=== PATIENT | female | born 1935 | race Caucasian/White ===

== ENCOUNTER 2016-03-29 10:36 | Outpatient (CLI) | payer OTHER ==
[2015-05-30 15:42] VITALS: BP 192/72
[2016-03-29 10:59] LABS: eGFR (African) > 60; eGFR (Non-African) > 60
== END 2016-03-29 10:37 ==
LOC: LABRHC 10:36
PROVIDERS: ATTEND Family Medicine
DX: I10 Essential (primary) hypertension (principal); R73.9 Hyperglycemia, unspecified; E55.9 Vitamin D deficiency, unspecified
CPT/HCPCS: 80053; 80061; 82306; 83036; 83735

== ENCOUNTER 2016-05-14 15:05 | Outpatient (CLI) | payer OTHER ==
[2015-05-30 15:42] VITALS: BP 192/72
== END 2016-05-14 15:10 ==
LOC: POD 15:05
PROVIDERS: ATTEND Podiatrist
DX: B35.1 Tinea unguium (principal); M79.674 Pain in right toe(s); M79.675 Pain in left toe(s)
CPT/HCPCS: G0463

== ENCOUNTER 2016-07-15 18:48 | Emergency (ER) | payer OTHER ==
[2016-07-15] MEDS ORDERED: 0.9 % SODIUM CHLORIDE 500 ML IV ONE (19:42)
[2016-07-15] MEDS: 0.9 % SODIUM CHLORIDE 500 ML IV ONE (19:45)
[2016-07-15 19:57] LABS: BASOPHILS % 0.4 (0.0-1.5); EOSINOPHILS % 3.9 % (0.0-6.8); MEAN CORPUSCULAR HEMOGLOBIN 30.9 pg (28.0-34.0); MEAN CORPUSCULAR VOLUME 94.1 fl (80.0-100.0); MONOCYTES % 4.6 % (0.0-11.0); NEUTROPHILS # 4.8 # k/uL (1.4-7.7)
[2016-07-15 20:00] LABS: eGFR (African) > 60; eGFR (Non-African) > 60
[2016-07-15] MEDS: POTASSIUM CHLORIDE 20 MEQ TABLET.ER PO ONE (20:24)
[2016-07-15] MEDS: MECLIZINE HCL 25 MG TABLET PO ONE (20:24)
--- NOTE | 2016-07-15 20:40 | ED Physician Documentation ---
General Adult - HISTORIAN Historian: patient, other (family) - HPI Stated Complaint: dizzy,weakness Chief Complaint: General Adult Further Comments: yes (81 year old female patient presents with complaints of vertigo which started a few days ago. Patient had been taking 1/2 tab of Celexa 10mg. Patient took herself off Celexa due to night gillette and "I'm tired of taking it". Family very concerned, state patient has increase anxiety and is prone to depression. Patient is a very poor historian and contradicts her own answers frequently. Patient c/o urinary burning, denies fever, frequency, or N/V.) - ROS CONST: no problems EYES/ENT: none CVS/RESP: none GI/: none NEURO/PSYCH: dizziness, anxiety, depression - PAST HX Past History: hypertension Other History: other (depression, HLD) Allergies/Adverse Reactions: Allergies Allergy/AdvReac Type Severity Reaction Status Date / Time No Known Drug Allergies Allergy Verified 07/15/16 20:39 Home Medications: Ambulatory Orders Medication Instructions Recorded Citalopram Hydrobromide 20 mg PO D 07/15/16 [Citalopram HBr] - SOCIAL HX Smoking History: cigarettes - FAMILY HX Family History: No - VITAL SIGNS Vital Signs: Vital Signs Temp Pulse Resp BP Pulse Ox 98.4 F 73 18 171/72 93 07/15/16 18:48 07/15/16 19:00 07/15/16 18:48 07/15/16 19:00 07/15/16 18:48 - REVIEWED ASSESSMENTS Nursing Assessment Reviewed: Yes Vitals Reviewed: Yes Progress - Progress Progress: Chloride 106 - lab rerun Long discussion with family regarding medications and symptoms patient has been reporting. Patient has been having night gillette and waking up tired. Is currently taking 1/2 of her prescribed dose of Celexa. Is using the lorazepam QAM only. Dizziness started after patient stopped celexa. Strongly encouraged patient to take all medications as prescribed. Restart Celexa at 20mg per Dr Agudelo's March 2016 office note. Encouraged patient to use lorazepam qhs as well. Medicated with meclizine while in the Er for vertigo. Will prescribe prn dose. ED Results Lab/Radiology - Lab Results Lab Results: Lab Results 07/15/16 07/15/16 19:41 19:41 WBC 8.26 K/ul K/ul (4.00-12.00) RBC 4.40 M/ul M/ul (3.90-5.20) Hgb 13.6 g/dL g/dL (12.0-16.0) Hct 41.4 % % (34.5-46.5) MCV 94.1 fl fl (80.0-100.0) MCH 30.9 pg pg (28.0-34.0) MCHC 32.9 g/dL g/dL (30.0-36.0) RDW 13.4 % % (11.3-14.3) Plt Count 192 K/mm3 K/mm3 (130-400) Neut % (Auto) 57.8 % % (39.0-79.0) Lymph % (Auto) 31.8 % % (16.0-50.0) [place] % (Auto) 4.6 % % (0.0-11.0) Eos % (Auto) 3.9 % % (0.0-6.8) Baso % (Auto) 0.4 (0.0-1.5) Neut # 4.8 # k/uL # k/uL (1.4-7.7) Lymph # 2.6 # k/uL # k/uL (0.6-4.0) [place] # 0.4 # k/uL # k/uL (0.0-0.9) Eos # 0.3 # k/uL # k/uL (0.0-0.6) Baso # 0.0 # k/uL # k/uL (0.0-0.5) Reactive Lymphs % 1.5 % % (0.0-5.0) Reactive Lymphs # 0.1 # k/uL # k/uL (0.0-0.8) Sodium 144 mmol/L mmol/L (136-145) Potassium 3.2 mmol/L L mmol/L (3.5-5.0) Chloride 150 mmol/L H mmol/L (98-110) Carbon Dioxide 33 mmol/L H mmol/L (20-32) BUN 15 mg/dL mg/dL (10-26) Creatinine 0.7 mg/dL mg/dL (0.4-1.5) Est GFR ( Amer) > 60 (60 - ) Est GFR (Non-Af Amer) > 60 (60 - ) Glucose 116 mg/dL H mg/dL (70-99) Calcium 9.7 mg/dL mg/dL (8.5-10.5) Total Bilirubin 0.3 mg/dL mg/dL (0.2-1.2) AST 22 U/L U/L (0-41) ALT 18 U/L U/L (0-45) Alkaline Phosphatase 63 U/L U/L (46-116) Total Protein 7.0 g/dL g/dL (6.0-8.5) Albumin 4.1 g/dL g/dL (3.0-5.5) - Orders Orders: ED Orders Category Date Time Status Orthostatics PRN Care 07/15/16 19:[address] Saline Lock/IV NOW Care 07/15/16 19:12 Active BMP [BMP] Stat Lab 07/15/16 Ordered CBC/PLATELET/DIFF Stat Lab 07/15/16 19:41 Completed CMP Stat Lab 07/15/16 19:41 Completed UA W/MICRO IF INDICATED Stat Lab 07/15/16 19:12 Ordered 0.9 % Sodium Chloride [Normal Saline] 500 ml Med 07/15/16 19:42 Discontinued IV .STK-MED 0.9 % Sodium Chloride [Normal Saline] 500 ml Med 07/15/16 19:40 Discontinued IV NOW Meclizine HCl [Antivert] Med 07/15/16 20:15 Discontinued 25 mg PO NOW ONE Potassium Chloride [Klor-Con M20] Med 07/15/16 20:15 Discontinued 40 meq PO NOW ONE General Adult Physical Exam - PHYSICAL EXAM GENERAL APPEARANCE: [id number] N EENT: eye inspection normal, DM RESPIRATORY: no resp distress, chest non-tender, breath sounds normal CVS: reg rate & rhythm, heart sounds normal, equal pulses, no murmur, no gallop , PMI nml, no JVD, no friction rub, 24 ABDOMEN: soft, no organomegaly, normal bowel sounds, no abdominal bruit, no distension BACK: normal inspection, no CVA tenderness SKIN: normal color, warm/dry, NR, INT, PAL, DR EXTREMITIES: non-tender, normal range of motion, no evidence of injury, no edema , J, [employer]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 Use your Lorazepam (ativan) in the morning and AT BEDTIME to help you sleep Restart your Aspirin 325mg every MORNING only. DO NOT use aspirin for pain. Use tylenol or ibuprofen as needed for pain. Follow up with Dr Agudelo for a lab recheck and medication recheck. Home Medications: Ambulatory Orders Citalopram Hydrobromide [Citalopram HBr] 20 mg PO D 07/15/16 Condition: Stable Disposition: 01 HOME, SELF-CARE Decision to Admit: NO Decision Time: 20:51
[2016-07-15 21:57] VITALS: BP 157/74
[2016-07-16 05:47] LABS: APPEARANCE,URINE CLEAR (CLEAR); COLOR,URINE YELLOW (YELLOW)
[2016-07-16 05:48] LABS: OCCULT BLOOD,URINE NEGATIVE (NEGATIVE); UROBILINOGEN URINE 0.2 Eu (0.2-1.0)
== END 2016-07-15 21:00 | disposition home or self-care (01) ==
LOC: ED 18:48
DX: R42 Dizziness and giddiness (principal)
CPT/HCPCS: 80053; 85025; A9270; J7030; J7060; 81002; 87086; 96360; 99283; S1016

== ENCOUNTER 2016-08-19 16:16 | Outpatient (CLI) | payer OTHER ==
[2016-08-19 16:41] LABS: eGFR (African) > 60; eGFR (Non-African) > 60
== END 2016-08-19 16:17 ==
LOC: LABRHC 16:16
PROVIDERS: ATTEND Family Medicine
DX: E11.9 Type 2 diabetes mellitus without complications (principal)
CPT/HCPCS: 80053; 83036

== ENCOUNTER 2016-09-24 14:49 | Outpatient (CLI) | payer OTHER | END 2016-09-24 14:50 | LOC: POD 14:49 | PROVIDERS: ATTEND Podiatrist | DX: B35.1 Tinea unguium (principal); M79.674 Pain in right toe(s); M79.675 Pain in left toe(s) | CPT/HCPCS: 11721; G0463 ==

== ENCOUNTER 2017-04-05 11:31 | Emergency (ER) | payer OTHER ==
--- NOTE | 2017-04-05 11:52 | ED Physician Documentation ---
General Adult - HISTORIAN Historian: patient - HPI Stated Complaint: fall Chief Complaint: Fall Onset: other (3 days ) Timing: still present Severity: mild Further Comments: yes (She with son at bedside reports that she has had some issues with general fatigue and dizzines and Dr Agudelo (her PCP) has been trying to figure out what the issue is without success . Son states that she has tried different meds for anxiety and depression (she has recently lost and son ) She states she has had some ongoing weakness but this usually starts in am and resloves through out the day , although over last "about a week" she has had continuing weakness and just feeling "blah" . She denies any headache, no fever, no urinary issues, no N/V/D. Son states 3 days ago she had a fall. Pt states 3 days ago she had an extreme dizzy episode and she did fall. Denies any injury, she denies hitting her head. She states since this fall the weakness is increased. She also reports a "numbness in my tounge at the tip and my left thumb" she states this comes and goes. Family denies any change in her metal status or use of limbs. She denies any physical weakness on one side vs the other . She denies any loss of control of bowel or bladder) Last known Well Code/Unknown Code: Unknown - ROS CONST: weakness. denies: fever EYES/ENT: denies: problems with vision CVS/RESP: denies: shortness of breath, cough GI/: denies: abdominal pain, problems urinating, vomiting, nausea, diarrhea MS/SKIN/LYMPH: denies: calf pain, neck pain, joint pain, leg swelling, rash, swollen glands, leg pain, back pain, ankle swelling NEURO/PSYCH: dizziness, tingling, numbness, anxiety, depression. denies: headache, fainting, difficulty walking, difficulty with speech - PAST HX Past History: hypertension (PVD, insomina ), other Other History: none Allergies/Adverse Reactions: Allergies Allergy/AdvReac Type Severity Reaction Status Date / Time No Known Drug Allergies Allergy Verified 04/05/17 11:52 Home Medications: Ambulatory Orders Medication Instructions Recorded Meclizine HCl 12.5 mg PO TID PRN #30 tablet 07/15/16 - SOCIAL HX Smoking History: cigarettes Alcohol Use: none Drug Use: none - FAMILY HX Family History: No - VITAL SIGNS Vital Signs: Vital Signs Temp Pulse Resp BP Pulse Ox 157/74 07/15/16 21:46 - REVIEWED ASSESSMENTS Nursing Assessment Reviewed: Yes Vitals Reviewed: Yes Progress - Results/Orders Results/Orders: Findings discussed with family they are requesting to transfer to [facility] [place] (Transfer Engineer) contacted and case discussed she will page Neurology and return call Return call from Dr Agudelo (Neurology) and he will accept patient He is requesting CD of scan Pt and family aware and agreeable to plan ED Results Lab/Radiology - Radiology Radiology Impressions: Examination: CT head without contrast History: Fall Comparison exam: None available Technique: Noncontrast head CT protocol. Findings: Ventricles and sulci are prominent. Cerebrocerebellar parenchyma demonstrates periventricular low attenuation consistent with small vessel disease. High density area involving the cerebellum. No evidence for mass or mass effect. No midline shift. No extra axial fluid collections. Partial visualization of the paranasal sinuses, mastoid air cells, orbits, skull and scalp without gross irregularity. Vascular calcifications. Impression: Advanced age related changes. High density area left cerebellum concerning for hemorrhage given patient's history of fall. Possibility that this represents calcification is a distinct possibility however without old films this cannot be confirmed. Consider neurosurgical consultation not already obtained. Discussed findings with Dr. White at 1243 hours on 05 April 2017 CDT Electronically signed on Apr 05, 2017 12:44:35 PM ELECTROTYPE CASTER by: Derek Tidwell General Adult Physical Exam - PHYSICAL EXAM GENERAL APPEARANCE: no distress EENT: eye inspection normal, DM NECK: normal inspection RESPIRATORY: no resp distress, chest non-tender, breath sounds normal CVS: reg rate & rhythm, heart sounds normal, equal pulses, no murmur ABDOMEN: soft, normal bowel sounds, no distension, non-tender BACK: normal inspection SKIN: warm/dry, normal color, cyanosis EXTREMITIES: non-tender, normal range of motion, no evidence of injury, no edema NEURO: oriented X3, CN's nml as tested, motor nml, sensation nml, mood/affect nml, cognition normal. No: weakness/sensory loss, speech/cognition abnml, depressed mood/affect, facial droop, sensory/motor deficit, asymmetric reflexes Discharge Clincal Impression: Hemorrhagic cerebellum Qualifiers: Laterality: left Clincal Impression: (Ruled Out): Brain stem hemorrhage Referrals: Calvin Agudelo MD [Primary Care Provider] - 2 Days Comments: Dr Agudelo [facility] accepting Condition: Critical Disposition: 02 XFER SHT-TRM HOSP Decision to Admit: [id number] Date of Decison to Admit: 04/05/17 Decision Time: 13:38
[2017-04-05 12:24] LABS: BASOPHILS % 0.8 (0.0-1.5); EOSINOPHILS % 2.4 % (0.0-6.8); MEAN CORPUSCULAR HEMOGLOBIN 30.7 pg (28.0-34.0); MEAN CORPUSCULAR VOLUME 96.7 fl (80.0-100.0); MONOCYTES % 3.6 % (0.0-11.0); NEUTROPHILS # 5.4 # k/uL (1.4-7.7)
[2017-04-05 12:45] LABS: eGFR (African) > 60; eGFR (Non-African) > 60
[2017-04-05 12:52] LABS: APPEARANCE,URINE CLEAR (CLEAR); COLOR,URINE YELLOW (YELLOW)
[2017-04-05 12:53] LABS: OCCULT BLOOD,URINE NEGATIVE (NEGATIVE); UROBILINOGEN URINE 0.2 Eu (0.2-1.0)
[2017-04-05 14:01] VITALS: BP 159/64
--- NOTE | 2017-04-05 17:59 | Diagnostic Imaging Report ---
NOE ROSAS [facility] [place] [facility] [address] [facility] [address] [place], [place]. [address] Report Submission Date: Apr 05, 2017 12:44:35 PM STATISTICS PROFESSOR Patient Study Name: ROSELINE CHAVEZ Date: Apr 05, 2017 12:16:42 PM STATISTICS PROFESSOR Modality Type: CT\SR Gender: F Description: CT BRAIN W/O CONTRAST : 34 Institution: [facility] Physician: NOE ROSAS Examination: CT head without contrast History: Fall Comparison exam: None available Technique: Noncontrast head CT protocol. Findings: Ventricles and sulci are prominent. Cerebrocerebellar parenchyma demonstrates periventricular low attenuation consistent with small vessel disease. High density area involving the cerebellum. No evidence for mass or mass effect. No midline shift. No extra axial fluid collections. Partial visualization of the paranasal sinuses, mastoid air cells, orbits, skull and scalp without gross irregularity. Vascular calcifications. Impression: Advanced age related changes. High density area left cerebellum concerning for hemorrhage given patient's history of fall. Possibility that this represents calcification is a distinct possibility however without old films this cannot be confirmed. Consider neurosurgical consultation not already obtained. Discussed findings with Dr. Rosas at 1243 hours on 05 April 2017 CDT Electronically signed on Apr 05, 2017 12:44:35 PM STATISTICS PROFESSOR by: Derek BRADFORD
== END 2017-04-05 13:55 | disposition short-term general hospital (02) ==
LOC: ED 11:31
DX: I61.4 Nontraumatic intracerebral hemorrhage in cerebellum (principal)
CPT/HCPCS: 70450; 80053; 81002; 85025; 87086; 99283; S1016

== ENCOUNTER 2017-04-28 16:29 | Outpatient (CLI) | payer OTHER | END 2017-04-28 16:30 | LOC: LABRHC 16:29 | PROVIDERS: ATTEND Family Medicine | DX: N30.90 Cystitis, unspecified without hematuria (principal) | CPT/HCPCS: 87086 ==

== ENCOUNTER 2017-08-19 10:34 | Outpatient (CLI) | payer OTHER | END 2017-08-19 10:35 | LOC: LABRHC 10:34 | PROVIDERS: ATTEND Physician Assistant | DX: N30.00 Acute cystitis without hematuria (principal) | CPT/HCPCS: 87086 ==

== ENCOUNTER 2017-09-12 13:30 | Outpatient (CLI) | payer OTHER | END 2017-09-12 13:32 | LOC: LAB 13:30 | PROVIDERS: ATTEND Family Medicine | DX: N30.00 Acute cystitis without hematuria (principal) | CPT/HCPCS: 87086 ==

== ENCOUNTER 2017-09-29 16:14 | Outpatient (CLI) | payer OTHER | END 2017-09-29 16:15 | LOC: LABRHC 16:14 | PROVIDERS: ATTEND Family Medicine | DX: N30.01 Acute cystitis with hematuria (principal) | CPT/HCPCS: 87086 ==

== ENCOUNTER 2017-11-24 13:20 | Outpatient (CLI) | payer OTHER ==
[2017-11-24 15:40] LABS: eGFR (Non-African) > 60
== END 2017-11-24 13:25 ==
LOC: LAB 13:20
PROVIDERS: ATTEND Family Medicine
DX: R73.9 Hyperglycemia, unspecified (principal); E78.5 Hyperlipidemia, unspecified
CPT/HCPCS: 36415; 80053; 80061; 83036

== ENCOUNTER 2018-03-05 14:02 | Outpatient (CLI) | payer OTHER | END 2018-03-05 14:03 | LOC: LABRHC 14:02 | PROVIDERS: ATTEND Family Medicine | DX: N39.0 Urinary tract infection, site not specified (principal) | CPT/HCPCS: 87086 ==

== ENCOUNTER 2018-11-16 10:32 | Outpatient (CLI) | payer OTHER, MEDICARE | END 2018-11-16 10:34 | LOC: LABRHC 10:32 | PROVIDERS: ATTEND Family Medicine | DX: B96.1 Klebsiella pneumoniae [K. pneumoniae] as the cause of diseases classified elsewhere (principal) | CPT/HCPCS: 87086; 87186 ==

== ENCOUNTER 2018-11-17 14:48 | Emergency (ER) | payer MEDICARE, OTHER ==
--- NOTE | 2018-11-17 15:31 | ED Physician Documentation ---
Dizziness - HISTORIAN Historian: patient - HPI Stated Complaint: fall Chief Complaint: Fall Additional Information: Patient is an 83 year old female who presents to the ER via [facility] from home. Patient states that she started on Zoloft 50mg in the evening yesterday. Took her first dose around 21:00. She states that she has been dizzy since taking it. This AM she continued to be dizzy and fell between [id number]. States that she landed on her butt. Was unable to get up and was on the kitchen floor until her neighbor found her at approx. 1400, c/o continuous dizziness and low back pain. She is able to straighten her legs and bring knees to 90 degrees. Family wants to make sure she didn't hurt her back or pelvis. NIH is negative. Patient is alert and oriented; patient was not wearing her life alert. Timing: sudden onset, better Duration: none Severity: mild Associated Symptoms: light headedness Decreased Ability to Stand/ Walk: cannot walk Usually: walks w/o assistance Worsened By: changing position - ROS CONST: other (Started taking Zoloft 50 mg last night) EYES/ENT: none GI/: none MS/SKIN/LYMPH: none NEURO/PSYCH: none CVS/RESP: none - PAST HX Past History: hypertension, other (anxiety and depression) Cardiac Disease: other (HLD, PVD) Immunizations: UTD Allergies/Adverse Reactions: Allergies Allergy/AdvReac Type Severity Reaction Status Date / Time No Known Drug Allergies Allergy Verified 11/17/18 15:16 Home Medications: Ambulatory Orders Medication Instructions Recorded Sulfamethoxazole/Trimethoprim 11/17/18 [Sulfamethoxazole-Tmp Ds Tablet] - SOCIAL HX Smoking History: less than 1 pack/day Alcohol Use: none Drug Use: none - FAMILY HX Family History: none - VITAL SIGNS Vital Signs: Vital Signs Temp Pulse Resp BP Pulse Ox 98.1 F 77 24 170/62 94 11/17/18 14:48 11/17/18 14:48 11/17/18 14:48 11/17/18 14:48 11/17/18 14:48 - REVIEWED ASSESSMENTS Nursing Assessment Reviewed: Yes Vitals Reviewed: Yes ED Results Lab/Radiology - Radiology Radiology Impressions: Exam: AP pelvis. History: Fall. No previous studies are available for comparison. Diffuse osteopenia is noted. No signs of acute fracture or dislocation is seen. No bony erosions are seen. No soft tissue abnormalities identified. Impression: No bony abnormality. Exam: Lumbar spine. History: Fall. AP and lateral view of the lumbar spine are submitted. Diffuse osteopenia is noted. Dextroscoliosis is noted. The vertebral body heights are adequately maintained. Disc space narrowing with endplate sclerosis and spurring throughout the lumbar spine are noted. No spondylolisthesis is identified. Impression: Diffuse osteopenia. Dextroscoliosis. Multilevel degenerative disc disease. - Orders Orders: ED Orders Category Date Time Status L SPINE 2 OR 3 VIEWS [RAD] Stat Exams 11/17/18 Ordered PELVIS AP 1 OR 2 VIEWS [RAD] Stat Exams 11/17/18 Ordered CBC/PLATELET/DIFF Routine Lab 11/17/18 15:13 Ordered CMP Routine Lab 11/17/18 15:13 Ordered URINALYSIS Routine Lab 11/17/18 15:13 Ordered EKG WITH COMPARISON Stat Ther 11/17/18 Ordered Dizziness Physical Exam - Physical Exam General Appearance: mild distress EENT: eye inspection normal, ENT inspection normal, pharynx normal, no signs of dehydration, DM Neck: supple Respiratory: breath sounds nml CVS: heart sounds normal Abdomen: soft, normal bowel sounds Skin: warm/dry, normal color Neuro: nml orientation, nml speech, nml cognition, mood/affect nml Extremities: non-tender, normal range of motion, no evidence of injury Cranial: nml as tested, no evidence of acute CVA Cerebellar: nml as tested Sensorimotor: motor nml, sensation nml Discharge Clincal Impression: New medication added, Fall at home, Medication side effect Clincal Impression: (Ruled Out): Medication dose changed Referrals: Calvin Agudelo MD [Primary Care Provider] - 2 Days Additional Instructions: Decrease Zoloft to 25mg in the evening for 1 week and follow up with PCP to increase Change positions slowly and sit for a moment Increase water intake Wear life alert Follow up with PCP in one week to reevaluate and discuss Zoloft increase (patient was able to get up and get into vehicle without difficulty) Condition: Good Disposition: 01 HOME, SELF-CARE Decision to Admit: NO Decision Time: 16:45
[2018-11-17 15:55] LABS: APPEARANCE,URINE CLEAR (CLEAR); COLOR,URINE AMBER (YELLOW); OCCULT BLOOD,URINE NEGATIVE (NEGATIVE); PH URINE 6.5 (5.0 - 8.0)
[2018-11-17 15:58] LABS: BASOPHILS % 0.4 % (0.0-1.5); NEUTROPHILS # 8.3 # k/uL (1.4-7.7)
[2018-11-17 16:07] LABS: eGFR (Non-African) > 60
[2018-11-17 16:48] VITALS: BP 153/52
--- NOTE | 2018-11-19 14:20 | Diagnostic Imaging Report ---
TIFFANY COMBS ED [facility] [address] [facility].[address] [address] Report Submission Date: Nov 17, 2018 3:42:59 PM CDT Patient Study Name: ROSELINE CHAVEZ Date: Nov 17, 2018 3:12:11 PM CDT Modality Type: DX Gender: F Description: L SPINE 2 OR 3 VIEWS : 34 Institution: [facility] Physician: TIFFANY COMBS ED Exam: Lumbar spine. History: Fall. AP and lateral view of the lumbar spine are submitted. Diffuse osteopenia is noted. Dextroscoliosis is noted. The vertebral body heights are adequately maintained. Disc space narrowing with endplate sclerosis and spurring throughout the lumbar spine are noted. No spondylolisthesis is identified. Impression: Diffuse osteopenia. Dextroscoliosis. Multilevel degenerative disc disease. Electronically signed on Nov 17, 2018 3:42:59 PM CDT by: Demetrio BRADFORD
--- NOTE | 2018-11-19 14:20 | Diagnostic Imaging Report ---
TIFFANY COMBS ED [facility] [address] [facility].[address] [address] Report Submission Date: Nov 17, 2018 3:43:39 PM CDT Patient Study Name: ROSELINE CHAVEZ Date: Nov 17, 2018 3:12:13 PM CDT Modality Type: DX Gender: F Description: PELVIS AP 1 OR 2 VIEWS : 34 Institution: [facility] Physician: TIFFANY COMBS ED Exam: AP pelvis. History: Fall. No previous studies are available for comparison. Diffuse osteopenia is noted. No signs of acute fracture or dislocation is seen. No bony erosions are seen. No soft tissue abnormalities identified. Impression: No bony abnormality. Electronically signed on Nov 17, 2018 3:43:39 PM CDT by: Demetrio BRADFORD
== END 2018-11-17 16:34 | disposition home or self-care (01) ==
LOC: ED 14:48
DX: T88.7XXA Unspecified adverse effect of drug or medicament, initial encounter (principal); T43.205A Adverse effect of unspecified antidepressants, initial encounter; W19.XXXA Unspecified fall, initial encounter; Y92.009 Unspecified place in unspecified non-institutional (private) residence as the place of occurrence of the external cause
CPT/HCPCS: 36415; 72100; 72170; 80053; 81002; 85025; 93005; 99281; 99282

== ENCOUNTER 2019-02-08 13:10 | Inpatient (IN) | payer OTHER ==
[2019-02-08 13:48] VITALS: BMI 23.1
[2019-02-08] MEDS ORDERED: LORazepam 0.5 MG TABLET PO PRN (14:00)
[2019-02-08 14:13] LABS: BASOPHILS % 0.4 % (0.0-1.5); NEUTROPHILS # 6.2 # k/uL (1.4-7.7)
[2019-02-08 14:53] LABS: eGFR (Non-African) > 60
--- NOTE | 2019-02-08 15:14 | Diagnostic Imaging Report ---
PATIENT MR#: [id number] PATIENT PATIENT NAME: ROSELINE CHAVEZ DATE OF : 1935 REFERRING PHYSICIAN: Calvin Agudelo EXAM DATE: 02/08/2019 ACCESSION NUMBER: [id number] EXAM DESCRIPTION: CT BRAIN W/O CONTRAST CLINICAL HISTORY: MENTAL STATUS CHANGES; GENERAL FEELING OF WEAKNESS COMPARISON: April 05, 2017. TECHNIQUE: Head CT without contrast Brain: Again seen is calcification of the left cerebellar dentate nucleus. There is moderate diffuse periventricular white matter low attenuation change. No intracranial hemorrhage, hydrocephalus, acute parenchymal jay ma or evident mass. Calvarium: Unremarkable. Sinuses: Clear. Intracranial vessels: Atherosclerotic calcification of the anterior and posterior circulation. IMPRESSION: 1. No acute intracranial findings. 2. Chronic small vessel ischemic disease. 3. Left cerebellar calcification, unchanged. Read by: Dr. Lasha Francisco Transcribed by: Lasha Francisco Transcribed Date: 02/08/2019 3:13:37 PM Electronically signed by: Dr. Lasha Francisco Date signed: 02/08/2019 3:13:37 PM
[2019-02-08 15:23] LABS: APPEARANCE,URINE CLOUDY (CLEAR); COLOR,URINE YELLOW (YELLOW)
[2019-02-08 15:24] LABS: OCCULT BLOOD,URINE NEGATIVE (NEGATIVE); PH URINE 6.5 (5.0 - 8.0)
[2019-02-08] MEDS: NICOTINE 14mg PATCH.TD24 TD SCH (16:10)
--- NOTE | 2019-02-08 17:34 | History and Physical Report ---
History of Present Illnes - History of Present Illness Reason for Visit: Increasing ftigue and mental confusion History of Present Illness: 83yo who has been having some problems with fatigue.patient stated she is been having some problems for several years but is seem to be getting worse. Patient stated in the morning when she wakes up she doesn't have any energy to do anything. So she would lay in bed until around late morning. Then when she gets up at that time she starts feeling better. However her family stated she didn't that he may have difficulties in the afternoon and evening. Patient is been having some more episodes of confusion. This seems to be acutely worse over the last two weeks. Patient has been worked up as an outpatient without any specific etiology found. Patient does have some depression but has stopped taking her sertraline because she did not feel that it was helping. Patient is now having difficulties in taking her medications at the proper time. Patient was subsequently admitted to the hospital for further evaluation and treatment. - Past Medical History Cardiac: HTN, Hyperlipidemia, Other (PVD) ENT: Other (macular degeneration) Endocrine: Diabetes (type 2) - Past Surgical History Past Surgical History: Total Knee Replacement - Past Social History Smoke: # pack years (45), <1 pack per day (1/2 ppd) Occupation: retired Alcohol: None Drugs: None Lives: Alone - Health Maintenance Health Maintenance: denies: Influenza Vaccine (pt refuses), Pneumococcal Vaccine (pt refuses) Influenza Vaccine: No Pneumonia Vaccine: No Resuscitation Status: Resusciation Status Resuscitation Status Full Code Review of Systems - Review of Systems Constitutional: negative: Fever, Chills, Sweats Eyes: negative: pain, vision change ENT: Other (patient has been having some dizziness that sometimes just last for second or two and then sometimes for 15 to 30 minutes. No precipitating cause noted. Patient describes it as vertical type dizziness.). negative: Ear Pain, Ear Discharge, Nose Pain, Nose Discharge, Nose Congestion, Mouth Pain, Mouth Swelling, Throat Swelling Respiratory: negative: Cough, Shortness of Breath, Hemoptysis, SOB with Excertion, Wheezing Cardiovascular: Light Headedness. negative: Chest Pain, Palpitations, Orthopnea, Paroxysmal Noc. Dyspnea Gastrointestinal: Nausea, Constipation. negative: Vomiting, Abdominal Pain, Diarrhea, Melena, Hematochezia Genitourinary: negative: Dysuria, Frequency, Incontinence, Hematuria Musculoskeletal: Back Pain. negative: Neck Pain, Leg Pain Skin: negative: Rash, Lesions, Jaundice Neurological: Confusion. negative: Weakness, Numbness, Incoordination, Change in Speech - Medications/Allergies Allergies/Adverse Reactions: Allergies Allergy/AdvReac Type Severity Reaction Status Date / Time No Known Drug Allergies Allergy Verified 11/17/18 15:16 Home Medications: Home Medications Aspirin [Adult Aspirin Regimen] 81 mg PO DAILY 02/08/19 Cholecalciferol (Vitamin D3) [Vitamin D3] 1,000 units PO DAILY 02/08/19 Meclizine HCl [Motion-Time] 25 mg PO PRN 02/08/19 Current Inpatient Medications: Current Inpatient Medications Amlodipine Besylate (Norvasc) 5 mg PO DAILY [facility] Stop: 03/11/19 08:59 Aspirin (Shayna) 325 mg PO DAILY [facility] Stop: 03/11/19 08:59 Enoxaparin Sodium (Lovenox) 30 mg SQ DAILY [facility] Stop: 02/23/19 08:59 Fluticasone Propionate (Flonase Nasal [place]) 2 spray IEN DAILY [facility] Stop: 03/11/19 08:59 Lorazepam (Ativan) 0.5 mg PO HS [facility] Stop: 03/10/19 20:59 Lorazepam (Ativan) 0.5 mg PO TID PRN PRN Reason: Anxiety Stop: 03/10/19 13:59 Nicotine (Habitrol 14mg) 1 patch TD DAILY [facility] Stop: 03/10/19 15:59 Last Admin: 02/08/19 16:10 Dose: 1 patch Sertraline HCl (Zoloft) 50 mg PO DAILY [facility] Stop: 03/11/19 08:59 Exam - Exam Vital Signs: Vital Signs (72 hours) 02/08/19 13:12 Temperature 97 F L Pulse Rate [ 76 Right] Respiratory 20 Rate Blood Pressure 152/70 [Right Arm] O2 Sat by Pulse 98 Oximetry General: Alert, Oriented to Person, Oriented to Place, Oriented to Time, Cooperative, No acute distress HEENT: Atraumatic, PERRLA, EOMI, Mouth Mucous membr. moist/[place], Nose Mucous membr. moist/[place], Dentition Normal Neck: Normal Range of Motion Carotids: WNL Thyroid: WNL Lungs: Clear to auscultation, Normal air movement, Speaks full Sentences Cardiovascular: Regular rate, Normal S1, Normal S2, No murmurs Abdomen: Normal bowel sounds, Soft, No hepatospenomegaly, No masses, Other (mild tenderness over the LUQ area) Integumentary: Normal, [place], Warm, Dry Extremities: No clubbing, No cyanosis, No edema, Normal pulses, No tenderness/swelling Neurological: Normal gait, Normal speech, Strength Equal Bilat, Normal tone, Sensation intact, Cranial nerves 3-12 NL, Reflexes 2+ Psych/Mental Status: Mental status NL, Mood NL, Appropriate Affect, Intact Judgment, Other (patient does appear to have some confusion at times. She tends to repeat her self and her questions at times. Is having some difficulty with abstract thinking.) - Laboratory Results Laboratory Results: Laboratory Results 02/08/19 02/08/19 02/08/19 13:53 13:53 13:53 WBC 9.20 RBC 4.58 Hgb 14.0 Hct 42.4 MCV 93.0 MCH 30.5 MCHC 32.9 RDW 11.6 Plt Count 220 Neut % (Auto) 66.7 Lymph % (Auto) 24.5 [place] % (Auto) 5.4 Eos % (Auto) 3.0 Baso % (Auto) 0.4 Neut # (Auto) 6.2 Lymph # (Auto) 2.3 [place] # (Auto) 0.5 Eos # (Auto) 0.3 Baso # (Auto) 0.0 Sodium 140 Potassium 3.7 Chloride 105 Carbon Dioxide 26 Anion Gap 12.7 BUN 22 H Creatinine 0.74 Estimated Creat Clear 66 Est GFR ( Amer) > 60 Est GFR (Non-Af Amer) > 60 Glucose 129 H Calcium 9.7 Total Bilirubin 0.5 AST 33 ALT 15 Alkaline Phosphatase 61 Total Protein 8.4 H Albumin 4.3 TSH 1.840 Free T4 Direct 1.16 Free T3 Index Pending Urine Color Urine Appearance Urine pH Ur Specific [place] Urine Protein Urine Ketones Urine Occult Blood Urine Nitrite Urine Bilirubin Urine Urobilinogen Ur Leukocyte Esterase Urine RBC Urine WBC Ur Squamous Epith Cells Urine Bacteria Urine Glucose 02/08/19 15:12 WBC RBC Hgb Hct MCV MCH MCHC RDW Plt Count Neut % (Auto) Lymph % (Auto) [place] % (Auto) Eos % (Auto) Baso % (Auto) Neut # (Auto) Lymph # (Auto) [place] # (Auto) Eos # (Auto) Baso # (Auto) Sodium Potassium Chloride Carbon Dioxide Anion Gap BUN Creatinine Estimated Creat Clear Est GFR ( Amer) Est GFR (Non-Af Amer) Glucose Calcium Total Bilirubin AST ALT Alkaline Phosphatase Total Protein Albumin TSH Free T4 Direct Free T3 Index Urine Color Yellow Urine Appearance Cloudy H Urine pH 6.5 Ur Specific [place] 1.015 Urine Protein Negative Urine Ketones Negative Urine Occult Blood Negative Urine Nitrite Positive H Urine Bilirubin Negative Urine Urobilinogen 1.0 Ur Leukocyte Esterase 1+ H Urine RBC Negative Urine WBC 2-5 Ur Squamous Epith Cells Moderate H Urine Bacteria Many H Urine Glucose Negative Assessment/Plan - Assessment/Plan (1) Controlled type 2 diabetes mellitus Current Visit: Yes Qualifiers: Diabetes mellitus rodent exterminator insulin use: without rodent exterminator use Plan: Diet controlled at this time. Will monitor patient blood sugars make sure she's not have any hypoglycemic episodes that may be contributing some to her morning confusion and fatigue. (2) Dizziness Status: Acute Current Visit: No Assessment: It is believed that the patient is having some vertical type symptoms. 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 (3) Essential hypertension Status: Chronic Current Visit: Yes Assessment: Continue home meds (4) Fatigue Status: Chronic Current Visit: Yes Qualifiers: Fatigue type: chronic, unspecified Qualified Code(s): R53.82 - Chronic fatigue, unspecified Assessment: will get blood work as ordered (5) Change in mental status Status: Acute Current Visit: Yes Qualifiers: Coma depth: [place] coma 13-15 Plan: Will get blood work and CT scan. I will monitor blood sugars. I spent some time talking to family and patient that this problem may be multifactorial. VTE Assessment - RISK FACTOR SCORE VTE RISK FACTOR SCORES: AGE OVER 60 YEARS, ANTICIPATED BED CONFINEMENT OR IMMOBILIZATION > 24 HOURS - RISK VTE MODERATE RISK: SCORE OF 2 (RISK PROXIMAL DVT 2-4%) PROPHYAXIS NEEDED
[2019-02-08] MEDS: CITALOPRAM HYDROBROMIDE 20 MG TABLET PO SCH (18:42)
[2019-02-08] MEDS: LORazepam 0.5 MG TABLET PO SCH (20:50)
[2019-02-08] MEDS: ASPIRIN 325 MG TABLET PO SCH (20:51)
[2019-02-08] MEDS ORDERED: SODIUM CHLORIDE 0.9 % (FLUSH) 10 ML DISP.SYRIN IV SCH (21:00)
[2019-02-09] MEDS: CITALOPRAM HYDROBROMIDE 20 MG TABLET PO SCH (08:54)
[2019-02-09] MEDS: ENOXAPARIN SODIUM 30 MG/0.3 ML DISP.SYRIN SQ SCH (08:54)
[2019-02-09] MEDS: amLODIPine BESYLATE 5 MG TABLET PO SCH (08:54)
[2019-02-09] MEDS: ASPIRIN 325 MG TABLET PO SCH (08:54)
[2019-02-09] MEDS: NICOTINE 14mg PATCH.TD24 TD SCH (08:54)
[2019-02-09] MEDS: FLUTICASONE PROPIONATE 120 SPRAY/16 GR BOTTLE IEN SCH (08:57)
[2019-02-09] MEDS ORDERED: SERTRALINE HCL 50 MG TABLET PO SCH (09:00)
[2019-02-09] MEDS ORDERED: ASPIRIN 325 MG TABLET PO SCH (09:00)
[2019-02-09] MEDS: SULFAMETHOXAZOLE/TRIMETHOPRIM 800/160MG TAB PO SCH (09:57)
[2019-02-09] MEDS: LORazepam 0.5 MG TABLET PO SCH (21:26)
[2019-02-10] MEDS: SULFAMETHOXAZOLE/TRIMETHOPRIM 800/160MG TAB PO SCH (09:09)
[2019-02-10] MEDS: CITALOPRAM HYDROBROMIDE 20 MG TABLET PO SCH (09:09)
[2019-02-10] MEDS: NICOTINE 14mg PATCH.TD24 TD SCH (09:09)
[2019-02-10] MEDS: ASPIRIN 325 MG TABLET PO SCH (09:09)
[2019-02-10] MEDS: FLUTICASONE PROPIONATE 120 SPRAY/16 GR BOTTLE IEN SCH (09:09)
[2019-02-10] MEDS: ENOXAPARIN SODIUM 30 MG/0.3 ML DISP.SYRIN SQ SCH (09:09)
[2019-02-10] MEDS: amLODIPine BESYLATE 5 MG TABLET PO SCH (09:18)
--- NOTE | 2019-02-10 09:18 | Inpatient Progress Note ---
Subjective - Required Recertification Statement I anticipate X number of days because-include discharge plan: 2 days - Review of Systems Events since last encounter: Patient stated she is feeling some better this morning. Does feel like she has more energy. Did eat a good breakfast. Patient however is not been up ambulating much in the halls. Objective - Exam Vitals and I&O: Vital Signs Temp 98.2 F 02/10/19 06:00 Pulse 76 02/10/19 06:00 Resp 16 02/10/19 06:00 BP 146/67 02/10/19 06:00 Pulse Ox 95 02/10/19 06:00 Intake & Output 02/09/19 02/09/19 02/10/19 11:59 23:59 11:59 Intake Total 360 600 820 Balance 360 600 820 Intake: Oral 360 600 820 Other: Voiding Method Toilet Toilet Toilet # Voids 4 4 General: Alert, Oriented to Person, Oriented to Place Neck: Supple Lungs: Clear to auscultation, Normal air movement, Speaks full Sentences. No: Wheezes, Rales, Rhonchi Cardiovascular: Regular rate, Normal S1, Normal S2, No murmurs Abdomen: Normal bowel sounds, Soft, No tenderness Extremities: No clubbing Skin: Normal, [place], Warm, Dry Neurological: Normal speech, Strength Equal Bilat, Normal tone, Cranial nerves 3-12 NL Psych/Mental Status: No: Intact Judgment (some confusion) - Results Results: Laboratory Results WBC 9.20 K/ul (4.00-12.00) 02/08/19 13:53 RBC 4.58 M/ul (3.90-5.20) 02/08/19 13:53 Hgb 14.0 g/dL (11.5-16.0) 02/08/19 13:53 Hct 42.4 % (34.5-46.5) 02/08/19 13:53 MCV 93.0 fl (80.0-100.0) 02/08/19 13:53 MCH 30.5 pg (28.0-34.0) 02/08/19 13:53 MCHC 32.9 g/dL (30.0-36.0) 02/08/19 13:53 RDW 11.6 % (11.3-14.3) 02/08/19 13:53 Plt Count 220 K/mm3 (130-400) 02/08/19 13:53 Neut % (Auto) 66.7 % (39.0-79.0) 02/08/19 13:53 Lymph % (Auto) 24.5 % (16.0-50.0) 02/08/19 13:53 [place] % (Auto) 5.4 % (0.0-11.0) 02/08/19 13:53 Eos % (Auto) 3.0 % (0.0-6.8) 02/08/19 13:53 Baso % (Auto) 0.4 % (0.0-1.5) 02/08/19 13:53 Neut # (Auto) 6.2 # k/uL (1.4-7.7) 02/08/19 13:53 Lymph # (Auto) 2.3 # k/uL (0.6-4.0) 02/08/19 13:53 [place] # (Auto) 0.5 # k/uL (0.0-0.9) 02/08/19 13:53 Eos # (Auto) 0.3 # k/uL (0.0-0.6) 02/08/19 13:53 Baso # (Auto) 0.0 # k/uL (0.0-0.5) 02/08/19 13:53 ESR See scanned report 02/08/19 13:53 Sodium 140 mmol/L (137-145) 02/08/19 13:53 Potassium 3.7 mmol/L (3.5-5.1) 02/08/19 13:53 Chloride 105 mmol/L (98-107) 02/08/19 13:53 Carbon Dioxide 26 mmol/L (22-30) 02/08/19 13:53 Anion Gap 12.7 02/08/19 13:53 BUN 22 mg/dL (7-17) H 02/08/19 13:53 Creatinine 0.74 mg/dL (0.52-1.04) 02/08/19 13:53 Estimated Creat Clear 66 02/08/19 13:53 Est GFR ( Amer) > 60 (60-) 02/08/19 13:53 Est GFR (Non-Af Amer) > 60 (60-) 02/08/19 13:53 Glucose 129 mg/dL (74-106) H 02/08/19 13:53 Calcium 9.7 mg/dL (8.4-10.2) 02/08/19 13:53 Total Bilirubin 0.5 mg/dL (0.2-1.3) 02/08/19 13:53 AST 33 U/L (15-46) 02/08/19 13:53 ALT 15 U/L (0-35) 02/08/19 13:53 Alkaline Phosphatase 61 U/L (38-126) 02/08/19 13:53 Total Protein 8.4 g/dL (6.3-8.2) H 02/08/19 13:53 Albumin 4.3 g/dL (3.5-5.0) 02/08/19 13:53 TSH 1.840 mIU/l (0.465-4.685) 02/08/19 13:53 Free T4 Direct 1.16 ng/dL (0.78-2.19) 02/08/19 13:53 Free T3 Index See scanned report 02/08/19 13:53 Urine Color Yellow (YELLOW) 02/08/19 15:12 Urine Appearance Cloudy (CLEAR) H 02/08/19 15:12 Urine pH 6.5 (5.0 - 8.0) 02/08/19 15:12 Ur Specific [place] 1.015 (1.010-1.030) 02/08/19 15:12 Urine Protein Negative mg/dL (NEGATIVE) 02/08/19 15:12 Urine Ketones Negative mg/dL (NEGATIVE) 02/08/19 15:12 Urine Occult Blood Negative (NEGATIVE) 02/08/19 15:12 Urine Nitrite Positive (NEGATIVE) H 02/08/19 15:12 Urine Bilirubin Negative (NEGATIVE) 02/08/19 15:12 Urine Urobilinogen 1.0 Eu (0.2-1.0) 02/08/19 15:12 Ur Leukocyte Esterase 1+ (NEGATIVE) H 02/08/19 15:12 Urine RBC Negative (0-2 HPF) 02/08/19 15:12 Urine WBC 2-5 (0-5 HPF) 02/08/19 15:12 Ur Squamous Epith Cells Moderate (NEG-FEW) H 02/08/19 15:12 Urine Bacteria Many (NEGATIVE) H 02/08/19 15:12 Urine Glucose Negative mg/dL (NEGATIVE) 02/08/19 15:12 Rheumatoid Factor See scanned report 02/08/19 13:53 Anti-ds DNA IgG Ab See scanned report 02/08/19 13:53 Assessment/Plan - Assessment/Plan (1) Controlled type 2 diabetes mellitus Qualifiers: 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 I believe that part of her mental problems relate to some dementia and depression. Anti-depressant medication has been changed
--- NOTE | 2019-02-10 09:23 | Inpatient Progress Note ---
Subjective - Required Recertification Statement I anticipate X number of days because-include discharge plan: 1 day - Review of Systems Events since last encounter: Patient seem to be more confused today than her baseline. Patient otherwise did not was any complaints and wishes to go home. There is some questions about her safety at home and how well she can be taken her medications without supervision. Pulmonary: Denies: Dyspnea, Cough Cardiovascular: Denies: Chest Pain Gastrointestinal: Denies: Nausea, Vomiting, Abdominal Pain Objective - Exam Vitals and I&O: Vital Signs Temp 98.2 F 02/10/19 06:00 Pulse 76 02/10/19 06:00 Resp 16 02/10/19 06:00 BP 146/67 02/10/19 06:00 Pulse Ox 95 02/10/19 06:00 Intake & Output 02/09/19 02/09/19 02/10/19 11:59 23:59 11:59 Intake Total 360 600 820 Balance 360 600 820 Intake: Oral 360 600 820 Other: Voiding Method Toilet Toilet Toilet # Voids 4 4 General: Alert, Oriented to Person, Oriented to Place, Cooperative. No: Oriented to Time Neck: Supple, No JVD Lungs: Clear to auscultation, Normal air movement, Speaks full Sentences. No: Wheezes, Rales, Rhonchi Abdomen: Normal bowel sounds, Soft, No tenderness Extremities: No clubbing, No cyanosis, No edema Skin: Normal, [place], Warm, Dry Neurological: Normal gait, Normal speech, Strength Equal Bilat, Normal tone, Sensation intact, Cranial nerves 3-12 NL Psych/Mental Status: Mental status NL, Mood NL. No: Appropriate Affect (confu sed), Intact Judgment - Results Results: Laboratory Results WBC 9.20 K/ul (4.00-12.00) 02/08/19 13:53 RBC 4.58 M/ul (3.90-5.20) 02/08/19 13:53 Hgb 14.0 g/dL (11.5-16.0) 02/08/19 13:53 Hct 42.4 % (34.5-46.5) 02/08/19 13:53 MCV 93.0 fl (80.0-100.0) 02/08/19 13:53 MCH 30.5 pg (28.0-34.0) 02/08/19 13:53 MCHC 32.9 g/dL (30.0-36.0) 02/08/19 13:53 RDW 11.6 % (11.3-14.3) 02/08/19 13:53 Plt Count 220 K/mm3 (130-400) 02/08/19 13:53 Neut % (Auto) 66.7 % (39.0-79.0) 02/08/19 13:53 Lymph % (Auto) 24.5 % (16.0-50.0) 02/08/19 13:53 [place] % (Auto) 5.4 % (0.0-11.0) 02/08/19 13:53 Eos % (Auto) 3.0 % (0.0-6.8) 02/08/19 13:53 Baso % (Auto) 0.4 % (0.0-1.5) 02/08/19 13:53 Neut # (Auto) 6.2 # k/uL (1.4-7.7) 02/08/19 13:53 Lymph # (Auto) 2.3 # k/uL (0.6-4.0) 02/08/19 13:53 [place] # (Auto) 0.5 # k/uL (0.0-0.9) 02/08/19 13:53 Eos # (Auto) 0.3 # k/uL (0.0-0.6) 02/08/19 13:53 Baso # (Auto) 0.0 # k/uL (0.0-0.5) 02/08/19 13:53 ESR See scanned report 02/08/19 13:53 Sodium 140 mmol/L (137-145) 02/08/19 13:53 Potassium 3.7 mmol/L (3.5-5.1) 02/08/19 13:53 Chloride 105 mmol/L (98-107) 02/08/19 13:53 Carbon Dioxide 26 mmol/L (22-30) 02/08/19 13:53 Anion Gap 12.7 02/08/19 13:53 BUN 22 mg/dL (7-17) H 02/08/19 13:53 Creatinine 0.74 mg/dL (0.52-1.04) 02/08/19 13:53 Estimated Creat Clear 66 02/08/19 13:53 Est GFR ( Amer) > 60 (60-) 02/08/19 13:53 Est GFR (Non-Af Amer) > 60 (60-) 02/08/19 13:53 Glucose 129 mg/dL (74-106) H 02/08/19 13:53 Calcium 9.7 mg/dL (8.4-10.2) 02/08/19 13:53 Total Bilirubin 0.5 mg/dL (0.2-1.3) 02/08/19 13:53 AST 33 U/L (15-46) 02/08/19 13:53 ALT 15 U/L (0-35) 02/08/19 13:53 Alkaline Phosphatase 61 U/L (38-126) 02/08/19 13:53 Total Protein 8.4 g/dL (6.3-8.2) H 02/08/19 13:53 Albumin 4.3 g/dL (3.5-5.0) 02/08/19 13:53 TSH 1.840 mIU/l (0.465-4.685) 02/08/19 13:53 Free T4 Direct 1.16 ng/dL (0.78-2.19) 02/08/19 13:53 Free T3 Index See scanned report 02/08/19 13:53 Urine Color Yellow (YELLOW) 02/08/19 15:12 Urine Appearance Cloudy (CLEAR) H 02/08/19 15:12 Urine pH 6.5 (5.0 - 8.0) 02/08/19 15:12 Ur Specific [place] 1.015 (1.010-1.030) 02/08/19 15:12 Urine Protein Negative mg/dL (NEGATIVE) 02/08/19 15:12 Urine Ketones Negative mg/dL (NEGATIVE) 02/08/19 15:12 Urine Occult Blood Negative (NEGATIVE) 02/08/19 15:12 Urine Nitrite Positive (NEGATIVE) H 02/08/19 15:12 Urine Bilirubin Negative (NEGATIVE) 02/08/19 15:12 Urine Urobilinogen 1.0 Eu (0.2-1.0) 02/08/19 15:12 Ur Leukocyte Esterase 1+ (NEGATIVE) H 02/08/19 15:12 Urine RBC Negative (0-2 HPF) 02/08/19 15:12 Urine WBC 2-5 (0-5 HPF) 02/08/19 15:12 Ur Squamous Epith Cells Moderate (NEG-FEW) H 02/08/19 15:12 Urine Bacteria Many (NEGATIVE) H 02/08/19 15:12 Urine Glucose Negative mg/dL (NEGATIVE) 02/08/19 15:12 Rheumatoid Factor See scanned report 02/08/19 13:53 Anti-ds DNA IgG Ab See scanned report 02/08/19 13:53 Assessment/Plan - Assessment/Plan (1) Change in mental status Status: Acute Qualifiers: Coma depth: [place] coma 13-15 Assessment: I believe that her dementia has progress to the point that it would be unsafe for her to remain at home without supervision. Family is thinking about options. They are talking with social service technician. 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 patient refuses to try to do [place] maneuver. Patient on Meclizine (4) Essential hypertension Status: Chronic (5) Fatigue Status: Chronic Qualifiers: Fatigue type: chronic, unspecified Qualified Code(s): R53.82 - Chronic fatigue, unspecified Assessment: Patient states that she feels worse today.
[2019-02-10] MEDS: LORazepam 0.5 MG TABLET PO SCH (20:22)
--- NOTE | 2019-02-11 08:30 | Discharge Summary ---
Discharge Summary - Discharge [facility] Admission Date: 02/08/19 (Acute) Discharge Date: 02/11/19 (home) Discharge To: Home Health History of Present Illness: 83yo who has been having some problems with fatigue.patient stated she is been having some problems for several years but is seem to be getting worse. Patient stated in the morning when she wakes up she doesn't have any energy to do anything. So she would lay in bed until around late morning. Then when she gets up at that time she starts feeling better. However her family stated she didn't that he may have difficulties in the afternoon and evening. Patient is been having some more episodes of confusion. This seems to be acutely worse over the last two weeks. Patient has been worked up as an outpatient without any specific etiology found. Patient does have some depression but has stopped taking her sertraline because she did not feel that it was helping. Patient is now having difficulties in taking her medications at the proper time. Patient was subsequently admitted to the hospital for further evaluation and treatment. Condition at Discharge: Stable Home Medications: Ambulatory Orders Medication Instructions Recorded Aspirin [Adult Aspirin Regimen] 81 mg PO DAILY 02/08/19 Cholecalciferol (Vitamin D3) 1,000 units PO DAILY 02/08/19 [Vitamin D3] Meclizine HCl [Motion-Time] 25 mg PO PRN 02/08/19 Citalopram Hydrobromide [Celexa] 20 mg PO DAILY #30 tablet 02/11/19 NICOTINE 14mg [HABITROL 14mg] 1 patch TD DAILY patch.[id number] 02/11/19 Sulfamethoxazole/Trimethoprim 1 each PO DAILY #10 tablet 02/11/19 [Bactrim DS] Consultations this Visit: None Procedures this Visit: None Allergies/Adverse Reactions: Allergies Allergy/AdvReac Type Severity Reaction Status Date / Time No Known Drug Allergies Allergy Verified 11/17/18 15:16 Discharge Summary: 83-year-old white female who is admitted to the hospital for some mental status change and chronic fatigue. Patient family stated she is been getting more confused at home and there is some questions about whether she taking her medications correctly. Patient does live at home by herself. Patient has been complaining about chronic fatigue. This is been going on for some time seem to occur in the morning and then get better by noon time. CT scan of the brain with damages showed age-related changes. Patient electrolyte were within normal limits. Patient thyroid test were within normal range. after interviewing the patient it was clear that she was having some dementia and depression problems. Patient previous antidepressant medication did not seem to be working well. Patient was subsequently changed over to Celexa to see if t his would work a little bit better. Patient chronic fatigue remained about the same during her hospitalization. software engineer web services were consulted. It was felt that the patient was not safe to return home to live by herself. After discussion with the family and various options it was elected that a family member would be staying with her to help make sure she taking her medications correctly. Patient did have some complaints of dizziness during her hospitalization. It is a chronic problem. Patient had been evaluated by ENT previously and was felt to have a labyrinth crystals. Patient has refused to do the Mary maneuver. Patient was subsequently discharged home in stable condition. - Final Diagnosis (1) Controlled type 2 diabetes mellitus Problems: stable (2) Dizziness Problems: stable, on Meclizine (3) Essential hypertension Problems: stable on home medications (4) Fatigue Problems: stable, believed to be somewhat related to depression (5) Change in mental status Problems: stable
[2019-02-11 08:43] VITALS: BP 105/50
[2019-02-11] MEDS: NICOTINE 14mg PATCH.TD24 TD SCH (08:44)
[2019-02-11] MEDS: amLODIPine BESYLATE 5 MG TABLET PO SCH ×2 (08:44)
[2019-02-11] MEDS: CITALOPRAM HYDROBROMIDE 20 MG TABLET PO SCH (08:44)
[2019-02-11] MEDS: SULFAMETHOXAZOLE/TRIMETHOPRIM 800/160MG TAB PO SCH (08:44)
[2019-02-11] MEDS: ASPIRIN 325 MG TABLET PO SCH (08:44)
[2019-02-11] MEDS: ENOXAPARIN SODIUM 30 MG/0.3 ML DISP.SYRIN SQ SCH (08:45)
[2019-02-11] MEDS: FLUTICASONE PROPIONATE 120 SPRAY/16 GR BOTTLE IEN SCH (08:45)
== END 2019-02-11 11:10 | disposition home health service (06) | DRG 881 ==
LOC: SOUTH 13:10 → OBSVTOIN 13:10
PROVIDERS: ADMIT Family Medicine; ATTEND Family Medicine
DX: F32.9 Major depressive disorder, single episode, unspecified (principal); F03.90 Unspecified dementia, unspecified severity, without behavioral disturbance, psychotic disturbance, mood disturbance, and anxiety; H83.8X9 Other specified diseases of inner ear, unspecified ear; I10 Essential (primary) hypertension; E78.5 Hyperlipidemia, unspecified; E11.51 Type 2 diabetes mellitus with diabetic peripheral angiopathy without gangrene; H35.30 Unspecified macular degeneration; F17.210 Nicotine dependence, cigarettes, uncomplicated; Z96.659 Presence of unspecified artificial knee joint; Z79.899 Other long term (current) drug therapy; Z79.82 Long term (current) use of aspirin
CPT/HCPCS: 36415; 70450; 80053; 81002; 84439; 84443; 84481; 85025; 85651; 86431; 87086; 87186; 93005; 97161; 97530; A9270; J1650; 99221; 99231; 99238

== ENCOUNTER 2019-03-18 15:31 | Outpatient (CLI) | payer OTHER | END 2019-03-18 15:41 | LOC: RAD 15:31 | PROVIDERS: ATTEND Family Medicine | DX: I73.9 Peripheral vascular disease, unspecified (principal) ==